=== PATIENT | female | born 1940 | race Caucasian/White ===

== ENCOUNTER → 2017-02-11 | Outpatient (CLI) | payer MEDICARE, OTHER ==
--- NOTE | 2017-02-11 09:37 | RADIOLOGY REPORT (SQ) ---
EXAM DESCRIPTION: CT CHEST WITH; CT ABD/PELVIS WITH IV ORAL COMPLETED DATE/TIME: 02/11/2017 8:19 am REASON FOR STUDY: COLON AND BREAST CANCER C18.2 MALIGNANT NEOPLASM OF ASCENDING COLON C50.411 TINA Hansen NEOPLM OF UPPER-OUTER QUADRANT OF RIGHT FEMALE COMPARISON: Thyroid ultrasound 04/11/2009 CT chest abdomen pelvis 02/03/2016 CONTRAST TYPE AND DOSE: contrast/concentration: Isovue 370.00 mg/ml; Total Contrast Delivered: 78.0 ml; Total Saline Delivered: 67.0 ml RENAL FUNCTION: Creatinine 1.1 TECHNIQUE: CT scan of the chest performed using helical scanning technique with dynamic intravenous contrast injection. Images reviewed with lung, soft tissue and bone windows. Reconstructed coronal a nd sagittal MPR images reviewed. All images stored on PACS. CT scan of the abdomen and pelvis performed with intravenous and with oral contrastusing helical scan radha technique with dynamic intravenous contrast injection. Images reviewed with lung, soft tissue a nd bone windows. Reconstructed coronal and sagittal MPR images reviewed. Delayed images for evaluat ion of the urinary system also acquired and evaluated. All images stored on PACS. All CT scanners at this facility use dose modulation, iterative reconstruction, and/or weight based d osing when appropriate to reduce radiation dose to as low as reasonably achievable (ALARA). [facility]: Dose Right [facility]: CareDose [facility]: Dose Right [facility]: Teradose 4D [facility]: Smart Technologies RADIATION DOSE: Up-to-date CT equipment and radiation dose reduction techniques were employed. CTDIv ol: 4.8 - 6.8 mGy. DLP: 930 mGy-cm. . LIMITATIONS: None. FINDINGS: CHEST: LUNGS AND PLEURA: Stable less than 6 mm subpleural noncalcified nodule posterior right upper lobe christina r the major fissure on axial image 54, of doubtful clinical significance. There is mild left basilar atelectasis in the posterior costophrenic sulcus. Minimal biapical pleuro parenchymal scarring and diffuse changes of obstructive lung disease throughout the upper lobes bilat erally. No pleural effusions. No pneumothorax. No acute infiltrates. No worrisome pulmonary nodules. HILAR AND MEDIASTINAL STRUCTURES: No identified masses or abnormal nodes. Moderate size retrocardiac hiatal hernia HEART AND VASCULAR STRUCTURES: No aneurysm or dissection. No central pulmonary emboli. No pericardi al effusion. Heavily calcified coronary arteries HARDWARE: None. THYROID AND OTHER SOFT TISSUES: Post left lobe thyroidectomy. 3.3 cm right thyroid nodule similar co mpared to previous studies. Old right mastectomy with breast implant. BONES: No significant finding. OTHER: No other significant finding. ABDOMEN AND PELVIS: LIVER: Normal size. No masses. No dilated ducts. SPLEEN: Normal size. No focal lesions. PANCREAS: No masses. No significant calcifications. No adjacent inflammation or peripancreatic fluid collections. Pancreatic duct not dilated. GALLBLADDER: No identified stones by CT criteria. No inflammatory changes to suggest cholecystitis. ADRENAL GLANDS: No significant masses or asymmetry. RIGHT KIDNEY AND URETER: No solid masses. Posterior right upper pole 2.4 x 1.6 cm cyst. No signific ant calcification. No hydronephrosis or hydroureter. LEFT KIDNEY AND URETER: No solid masses. No significant calcification. No hydronephrosis or hydrouret er. AORTA AND VESSELS: Calcified abdominal aorta without aneurysm. No definite stenosis of the celiac, S MA, bilateral renal arteries. At least 50% narrowing proximal right common iliac artery. Left proxi mal common iliac artery unremarkable. RETROPERITONEUM: No retroperitoneal adenopathy, hemorrhage or masses. BOWEL AND PERITONEAL CAVITY: Post right hemicolectomy. No CT evidence of bowel obstruction or free i ntraperitoneal air or fluid. Scattered sigmoid colon diverticuli without CT signs of acute diverticu litis. APPENDIX: Surgically absent ABDOMINAL WALL: No masses. No hernias. BONES: No significant or acute findings. PELVIS: No other significant finding. No adenopathy masses or free fluid. Normal size female pelvic organs. IMPRESSION: Old right mastectomy with breast implant. Remote prior left lobe thyroidectomy, stable right lobe thyroid nodule Right hemicolectomy and appendectomy No CT evidence of metastatic disease over the chest abdomen or pelvis TECHNICAL DOCUMENTATION: JOB ID: [id number] Quality ID # [id number]: Final reports with documentation of one or more dose reduction techniques (e.g., Au tomated exposure control, adjustment of the mA and/or kV according to patient size, use of iterative reconstruction technique) 2010 [employer]- All Rights Reserved
== END ==
LOC: RAD 07:28
PROVIDERS: ATTEND Internal Medicine
DX: C18.2 Malignant neoplasm of ascending colon (principal); C50.411 Malignant neoplasm of upper-outer quadrant of right female breast
CPT/HCPCS: 71260; 74177

== ENCOUNTER 2017-03-10 08:47 | Day surgery (SDC) | payer MEDICARE, OTHER ==
[2017-03-10] MEDS ORDERED: GLYCOPYRROLATE INJ 0.4 MG/2 ML VIAL ONE (09:19)
[2017-03-10] MEDS ORDERED: ONDANSETRON HCL INJ/PF 4 MG/2 ML SDV ONE (09:19)
[2017-03-10] MEDS ORDERED: NALOXONE HCL INJ/PF 0.4 MG/1 ML SDV ONE (09:20)
[2017-03-10] MEDS ORDERED: FLUMAZENIL INJ 0.5 MG/5 ML VIAL ONE (09:21)
[2017-03-10] MEDS ORDERED: EPINEPHRINE INJ 1 MG/10 ML DISP.SYRIN ONE (09:21)
[2017-03-10] MEDS ORDERED: GLUCAGON,HUMAN RECOMB 1 MG INJ ONE (09:21)
[2017-03-10] MEDS: MIDAZOLAM 2 MG/2 ML INJ ONE ×5 (09:48→10:14)
[2017-03-10] MEDS: FENTANYL CITRATE INJ/PF 100 MCG/2 ML AMPUL ONE ×2 (09:50→09:56)
--- NOTE | 2017-03-10 11:05 | PDOC DISCHARGE SUMMARY ---
Discharge Summary (SDC) - Discharge Final Diagnosis: Colon polyp Hx of Colon cancer Date of Surgery: 03/10/17 Discharge Date: 03/10/17 Condition: Good Treatment or Instructions: [place] [address] POST ENDOSCOPY DISCHARGE INSTRUCTIONS 1. Diet: Start clear liquids that a regular diet as tolerated. 2. Resume all preoperative medications. All oral anticoagulants and aspirins can be resumed 24 hours after procedure. 3. If a polypectomy was performed some bleeding per rectum may occur. This should stop within 3 days. If not, please contact the office. 4. If you had a colonoscopy you may experience some bloating and delayed return of normal bowel function for several days, your regular bowel movement pattern should resume within a week. 5. Please contact [facility] at to make an appointment with Dr. Mann for 1 to 3 weeks following procedure. 6. If you have any questions or concerns regarding your care,treatment plan or follow up, please contact our office. 7. Per clinical guidelines we recommend you undergo a repeat colonoscopy in 1 year. Referrals: HERNANDO MASON MD [Primary Care Provider] - Discharge Diet: As Tolerated Discharge Activity: Activity As Tolerated Home Care Assistance: None Needed Report the Following to Your Physician Immediately: Shortness of Breath, Increase in Pain, Fever over 101 Degrees
[2017-03-10 11:43] VITALS: BP 114/70
--- NOTE | 2017-03-10 12:17 | OPERATIVE REPORT E ---
Operative Report NAME: AIDE JESUS : 1940 AGE: 76Y DATE OF SURGERY: 03/10/2017 ROOM: PREOPERATIVE DIAGNOSIS: History of colon cancer, stage II, status post right hemicolectomy. POSTOPERATIVE DIAGNOSES: 1. History of colon cancer, stage II, status post right hemicolectomy, with no evidence of a tumor recurrence at anastomosis; sessile polyp of the distal transverse colon and diverticuloses. 2. Inflammation of the sigmoid colon. PROCEDURE: 1. Total colonoscopy to ileocolonic anastomosis. 2. Hot snare polypectomy of transverse colon polyp. 3. Cold forceps biopsy of sigmoid colon. SURGEON: JEANIE JACKSON M.D. ANESTHESIA: IV sedation. COMPLICATIONS: None. FINDINGS: Estimated blood loss minimal. SUMMARY OF PROCEDURE: The patient was brought from the preop area to the endoscopy suite, where monitoring devices were hooked up. She was placed in the left lateral decubitus position. Surgical plan and surgical timeout were conducted. Appropriate level of anesthesia was induced. A rectal exam was performed. There were external hemorrhoids, small and collapsed. There was no palpable pathology. A flexible adult colonoscope was advanced through the anorectal canal all the way to the ileocolonic anastomosis. This was a [id number] functional end-to-end anastomosis. The opening of the terminal ileum into the anastomosis, as well as the blind end of the mid transverse colon were photographed and examined carefully and there was no evidence of tumor recurrence. This was an excellent study on a well-prepped bowel. The scope was withdrawn through the length of the colon, checking mucosa carefully. In the distal transverse colon, there was an approximately 8 mm sessile somewhat irregular polyp photographed and removed with the hot snare device on medium strength and retained in the container. There was a small remnant of the polyp left and this was retrieved using a cold forceps device. There was a minimal amount of bleeding here and so this was managed by a single application of heat from the tip of the snare, leaving it essentially abated. We withdrew the scope through the rest of the colon, which was unremarkable except for rather dense diverticular disease of the sigmoid colon and some mild excoriation of the mucosa. A random biopsy was taken. The scope was withdrawn from the patient's anus. She tolerated the procedure well. Per surveillance guidelines, the patient would be an appropriate candidate for an accelerated timeframe for repeat colonoscopy in 1 year. DICTATING PHYSICIAN: JEANIE JACKSON M.D. [id number] PHY#: [id number] ID: [id number] JOB#: [id number] ACCT: [id number] cc:JEANIE JACKSON M.D. >
== END 2017-03-10 11:53 | disposition home or self-care (01) ==
LOC: OROUT 08:47
PROVIDERS: ATTEND Surgery
PROC: 0DBL8ZX Excision of Transverse Colon, Via Natural or Artificial Opening Endoscopic, Diagnostic (ICD-10-PCS; principal; 2017-03-10 09:15)
PROC: 0DBN8ZX Excision of Sigmoid Colon, Via Natural or Artificial Opening Endoscopic, Diagnostic (ICD-10-PCS; 2017-03-10 09:15)
DX: D12.3 Benign neoplasm of transverse colon (principal); K64.4 Residual hemorrhoidal skin tags; K52.9 Noninfective gastroenteritis and colitis, unspecified; Z85.038 Personal history of other malignant neoplasm of large intestine; E78.5 Hyperlipidemia, unspecified; I10 Essential (primary) hypertension; G31.9 Degenerative disease of nervous system, unspecified; E11.9 Type 2 diabetes mellitus without complications; F32.9 Major depressive disorder, single episode, unspecified; E89.0 Postprocedural hypothyroidism; M54.16 Radiculopathy, lumbar region; Z85.3 Personal history of malignant neoplasm of breast; Z87.891 Personal history of nicotine dependence; Z79.82 Long term (current) use of aspirin; Z79.899 Other long term (current) drug therapy
CPT/HCPCS: 45380; 45385; 88305 ×2; J2250; J3010; J0171; J1610; J2310; J2405; J3490

== ENCOUNTER → 2017-08-18 | Outpatient (CLI) | payer MEDICARE, OTHER ==
--- NOTE | 2017-08-18 12:05 | WOMENS IMAGING REPORT ---
EXAM DESCRIPTION: BONE DENSITY HIP/SPINE COMPLETED DATE/TIME: 08/18/2017 11:36 am REASON FOR STUDY: AGE-RELATED OSTEOPROSIS; M81.0 C50.411 MALIG NEOPLM OF UPPER-OUTER QUADRANT OF RI GHT FEMALE Z12.31 ENCNTR SCREEN MAMMOGRAM FOR MALIGNANT NEOPLASM OF SHEMAR M81.0 AGE-RELATED OSTEOPORO SIS W/O CURRENT PATHOLOGICAL FRAC COMPARISON: 2013 TECHNIQUE: Dual-Energy X-ray Absorptiometry (DEXA) of the AP Spine and Hip. LIMITATIONS: None. FINDINGS: LUMBAR SPINE: The bone mineral density (BMD) measured from L1-L4 in the AP projection correlates with a T-score of -0.7, which is normal as defined by the World Health Organization. Please note that this includes ve rtebral body endplate sclerosis and posterior element facet sclerosis. This represents a 12% increas e in bone density since 2013 HIP: The bone mineral density (BMD) measured in the left femoral neck at the hip correlates with a T-score of -2.8, which is osteoporotic as defined by the World Health Organization. This is stable compared to 2013 IMPRESSION: 1. LUMBAR SPINE: Normal 2. HIP: Osteoporotic COMMENT: The World Health Organization defines low BMD as follows: T-score: Normal: Greater than -1.0 Osteopenia: Between -1.0 and -2.5 Osteoporosis: Less than -2.5 without fractures Established osteoporosis: Less than -2.5 with fractures In general, you may wish to consider: Diagnosis Treatment Follow-up DEXA Normal BMD Prevention 2-3 years Osteopenia Prevention/Therapy 1-2 years Osteoporosis Therapy Yearly TECHNICAL DOCUMENTATION: JOB ID: [id number]- All Rights Reserved
--- NOTE | 2017-08-19 18:15 | WOMENS IMAGING REPORT ---
EXAM DESCRIPTION: 3D SCREENING MAMMO LEFT COMPLETED DATE/TIME: 08/18/2017 11:36 am REASON FOR STUDY: ENCOUNTER FOR SCREENING; Z12.31 C50.411 MALIG NEOPLM OF UPPER-OUTER QUADRANT OF R IGHT FEMALE Z12.31 ENCNTR SCREEN MAMMOGRAM FOR MALIGNANT NEOPLASM OF SHEMAR M81.0 AGE-RELATED OSTEOPOR OSIS W/O CURRENT PATHOLOGICAL FRAC COMPARISON: None. TECHNIQUE: Standard craniocaudal and mediolateral oblique views of the breast recorded using digital acquisition and breast tomosynthesis. LIMITATIONS: None. FINDINGS: BREAST: left No masses, calcifications or architectural distortion. No areas of suspicion. Read with the assistance of CAD. .[facility] - R2 Cenova Version 1.3 .[facility] - R2 Cenova Version 1.3 .[facility] - R2 Cenova Version 2.4 .[facility] - R2 Cenova Version 2.4 .[facility] - R2 Tea Blender Version 9.2 IMPRESSION: NORMAL MAMMOGRAM. BIRADS 1. BREAST DENSITY: b. There are scattered areas of fibroglandular density. BIRAD: 1 Negative RECOMMENDATION: RECOMMENDATION: ROUTINE SCREENING. Please continue bilateral screening tomosynthesis in August 2018 COMMENT: The patient has been notified of the results by letter per SA requirements. Additional no tification policies are in place for contacting patient with suspicious or incomplete findings. Quality ID #225: The [employer] recommends an annual screening mammogram for women aged 40 years or over. This facility utilizes a reminder system to ensure that all patients receive reminder letters, and/or direct phone calls for appointments. This includes reminders for routine scr eening mammograms, diagnostic mammograms, or other Breast Imaging Interventions when appropriate. Th is patient will be placed in the appropriate reminder system. The [employer] (ACR) has developed recommendations for screening MRI of the breast s in certain patient populations, to be used in conjunction with mammography. Breast MRI surveillance may be appropriate for women with more than 20% lifetime risk of developing breast cancer as determi agustín by genetic testing, significant family history of the disease, or history of mantle radiation for Hodgkins Disease. ACR Practice Guidelines 2008. DBT Technology DBT is a type of tomographic mammography. With conventional mammography, overlapping breast tissue ma y make lesions difficult to detect, even with good compression. DBT uses an x-ray tube that rotates a round the breast, taking images at different angles. These images are then combined to create thin sl ices of the breast that the radiologist can view as a 3D reconstruction. The Hologic unit can perform full-field digital mammograms (2D imaging); or DBT (3D imaging); or both, in a combination mode that quickly performs both the mammogram and the tomosynthesis scan while the breast is still compressed. PQRS 6045F: Fluoroscopic imaging is not utilized for breast tomosynthesis. TECHNICAL DOCUMENTATION: FINDING NUMBER: (1) ASSESSMENT: (1) JOB ID: [id number] [facility]- All Rights Reserved
== END ==
LOC: WI 08:44
PROVIDERS: ATTEND Internal Medicine
DX: Z12.31 Encounter for screening mammogram for malignant neoplasm of breast (principal); C50.411 Malignant neoplasm of upper-outer quadrant of right female breast; M81.0 Age-related osteoporosis without current pathological fracture
CPT/HCPCS: 77080

== ENCOUNTER 2017-09-08 12:54 | Outpatient (CLI) | payer MEDICARE ==
[~2017-09-08 12:54] MED LIST: DENOSUMAB 60 MG/ML SYR 1 ML SUBCUT PRN
[2017-09-08 13:29] VITALS: BP 118/57
== END 2017-09-08 13:58 | disposition home or self-care (01) ==
LOC: II 12:54 → 5TH 12:56 → II 13:58
PROVIDERS: ATTEND Internal Medicine
PROC: 3E0130M Introduction of Antineoplastic, Monoclonal Antibody, into Subcutaneous Tissue, Percutaneous Approach (ICD-10-PCS; principal; 2017-09-08)
DX: M95.8 Other specified acquired deformities of musculoskeletal system (principal); Z79.811 Long term (current) use of aromatase inhibitors
CPT/HCPCS: 96401; J0897

== ENCOUNTER 2017-11-19 22:22 | Emergency (ER) | payer MEDICARE ==
[2017-11-19] MEDS ORDERED: OXYMETAZOLINE HCL 0.05% NASAL SPRAY 15 ML BOTTLE ONE (23:26)
[2017-11-19] MEDS ORDERED: OXYMETAZOLINE HCL 0.05% NASAL SPRAY 15 ML BOTTLE NASL ONE (23:46)
[2017-11-19] MEDS ORDERED: MORPHINE SULFATE IR 15 MG TABLET PO ONE (23:50)
[2017-11-19] MEDS ORDERED: ONDANSETRON 4 MG TAB.RAPDIS PO ONE (23:51)
--- NOTE | 2017-11-19 23:57 | ER Document Report ---
ED ENT - General Chief Complaint: Nose Bleed Stated Complaint: NOSE BLEED Time Seen by Provider: 11/19/17 23:18 Mode of Arrival: Ambulatory Information source: Patient Notes: 77-year-old female patient presents with complaint of epistaxis. Patient reports that bleeding started from right nare approximately 90 minutes prior to arrival. Patient reports that she has had a history of nosebleeds however over the last 30 days they have been getting worse. She reports that she really has an appointment scheduled with also ENT, Dr. Hamilton on 12/07/2017. Patient takes aspirin 81 mg daily but does not take any other blood thinners. Patient reports that she had a history of nasal surgery several years ago in which her surgeon told her that she may suffer from nosebleeds. Patient denies any trauma to the area, denies any other symptoms. Patient reports past medical history of hypertension, hyperlipidemia, hyperthyroidism, type 2 diabetes, tremors, depression, breast cancer, colon cancer. TRAVEL OUTSIDE OF THE [place] IN LAST 30 DAYS: No - Related Data Allergies/Adverse Reactions: latex [Latex] Allergy (Intermediate, Verified 11/19/17 23:39) itch, redness iron [Iron] Adverse Reaction (Intermediate, Verified 11/19/17 23:39) abd cramping/pain Past Medical History - General Information source: Patient - Social History Smoking Status: Never Smoker Frequency of alcohol use: None Drug Abuse: None Lives with: Family Family History: Reviewed & Not Pertinent Patient has suicidal ideation: No Patient has homicidal ideation: No - Past Medical History Cardiac Medical History: Reports: Hx Hypercholesterolemia, Hx Hypertension Denies: Hx Coronary Artery Disease, Hx Heart Attack Pulmonary Medical History: Denies: Hx Asthma, Hx Bronchitis, Hx COPD, Hx Pneumonia Neurological Medical History: Denies: Hx Cerebrovascular Accident, Hx Seizures Endocrine Medical History: Reports: Hx Diabetes Mellitus Type 2, Hx Hyperthyroidism Renal/ Medical History: Denies: Hx Peritoneal Dialysis Musculoskeltal Medical History: Reports Hx Arthritis Psychiatric Medical History: Reports: Hx Depression Past Surgical History: Reports: Hx Abdominal Surgery. Denies: Hx Hysterectomy, Hx Pacemaker - Immunizations Hx Diphtheria, Pertussis, Tetanus Vaccination: Yes Hx Pneumococcal Vaccination: 04/10/17 Review of Systems - Review of Systems Constitutional: No symptoms reported EENT: See HPI Cardiovascular: No symptoms reported Respiratory: No symptoms reported Gastrointestinal: No symptoms reported Genitourinary: No symptoms reported Female Genitourinary: No symptoms reported Musculoskeletal: No symptoms reported Skin: No symptoms reported Hematologic/Lymphatic: No symptoms reported Neurological/Psychological: No symptoms reported Physical Exam - Vital signs Vitals: Temp Pulse Resp BP Pulse Ox 98.8 F 86 20 137/69 H 94 11/19/17 22:51 11/19/17 22:51 11/19/17 22:51 11/19/17 22:51 11/19/17 22:51 - Notes Notes: PHYSICAL EXAMINATION: GENERAL: Well-appearing, well-nourished and in no acute distress. HEAD: Atraumatic, normocephalic. EYES: Pupils equal round and reactive to light, extraocular movements intact, conjunctiva are normal. ENT: Nares patent, active bleeding from right nare with multiple clots, blood noted to the posterior oropharynx. Moist mucous membranes. NECK: Normal range of motion, supple without lymphadenopathy. LUNGS: Breath sounds clear to auscultation bilaterally and equal. No wheezes rales or rhonchi. HEART: Regular rate and rhythm without murmurs ABDOMEN: Soft, nontender, nondistended abdomen. No guarding, no rebound. No masses appreciated. Female : deferred Musculoskeletal: Normal range of motion, no pitting or edema. No cyanosis. NEUROLOGICAL: Cranial nerves grossly intact. Normal speech, normal gait. Normal sensory, motor exams PSYCH: Normal mood, normal affect. SKIN: Warm, Dry, normal turgor, no rashes or lesions noted. Course - Re-evaluation Re-evalutation: 77-year-old female patient with complaint of recurrent nosebleeds. Patient states that she has had previous nasal surgery and her surgeon told her this could be expected. Patient reports that she has had at least 4 bad nosebleeds over the last 30 days and already has an appointment set up with also ENT however the appointment is not until the end of the month. Patient with fairly significant bleeding from the right nare including passage of multiple large clots that has been ongoing for approximately 90 minutes. There is a moderate amount of blood in the posterior oropharynx. Initially attempted to pack the nose with Afrin impregnated cotton while obtaining the Rhino Rocket although the cotton was saturated within a few moments of the insertion. Patient was offered pain medication pre-procedure however patient declined this and stated that she just wanted to get this over with. Rhino Rocket was soaked in normal saline, lubricated, then inserted and secured into right nare without difficulty. Patient did request some pain and nausea medication after insertion and patient was given p.o. medications. Patient will be monitored for 30 minutes to ensure that we have achieved appropriate tamponade. Upon reassessment of patient, no additional bleeding is noted. Patient will be discharged with strict instructions to call Dr. Hamilton's office at [facility] first thing Tuesday in hopes of obtaining an appointment Tuesday or Tuesday for removal of the nasal packing. Patient does understand that if she is unable to obtain an appointment she show presented back to the emergency department in that 48 hour window for reassessment in removal of the nasal packing. Patient is stable at time of discharge. - Vital Signs Vital signs: Temp Pulse Resp BP Pulse Ox 98.8 F 82 16 132/82 H 98 11/19/17 22:51 11/20/17 01:28 11/20/17 01:28 11/20/17 01:28 11/20/17 01:28 Procedures - Nosebleed Procedure Right Location: Posterior Supplies used: Rhinorocket Discharge - Discharge Clinical Impression: Posterior epistaxis Condition: Stable Disposition: HOME, SELF-CARE Additional Instructions: Nosebleed Instructions There is a significant chance of re-bleeding following a nosebleed. Proper care makes this less likely. Do not touch the nose for 24 hours. Do not blow the nose forcefully for one week. After 24 hours, gently apply Vaseline ointment to both nostrils with the tip of a finger, three times a day, for one week. It's normal to have a bloody mucous discharge for a few days. If active bleeding recurs, blow all the blood from the nose, then sit quietly and pinch the nose as firmly as possible for 10 minutes. If this does not stop the bleeding, return for further care. If the packing starts to come out of the nostril, either tuck it back in or cut it off. Don't pull it out. Return for recheck and removal of the packing when in 48 hours. Please take the medications I have prescribed to you as directed. Please do not drive while taking in the pain medication. The packing in your nose needs to be removed in 48 hours. Please call [facility] Tuesday and let them know that you are at the emergency room late Tuesday night with a posterior nosebleed that required packing. The packing will need to be removed Tuesday or Tuesday. If for some reason you are unable to get an appointment with [facility] please return to the emergency department within this timeframe to have the packing removed. Prescriptions: Amoxicillin 500 mg PO BID #14 capsule Morphine Sulfate [Morphine Ir 15 Mg Tablet] 15 mg PO Q4H PRN #12 tablet PRN Reason: For Pain Ondansetron HCl [Zofran 4 mg Tablet] 1 - 2 tab PO Q4H PRN #10 tablet PRN Reason: Referrals: HERNANDO MASON MD [Primary Care Provider] - Follow up as needed ALBERT HAMILTON DO [ASSOCIATE] - Follow up as needed
[2017-11-20 01:30] VITALS: BP 132/82
== END 2017-11-20 01:30 | disposition home or self-care (01) ==
LOC: ER 22:22
PROC: 2Y41X5Z Packing of Nasal Region using Packing Material (ICD-10-PCS; principal; 2017-11-20)
DX: R04.0 Epistaxis (principal); Z79.82 Long term (current) use of aspirin; Z98.890 Other specified postprocedural states; Z85.3 Personal history of malignant neoplasm of breast; Z85.038 Personal history of other malignant neoplasm of large intestine
CPT/HCPCS: 99283; S0119

== ENCOUNTER → 2018-02-23 | Outpatient (CLI) | payer MEDICARE | LOC: LAB 14:10 | PROVIDERS: ATTEND Otolaryngology | DX: J30.9 Allergic rhinitis, unspecified (principal) | CPT/HCPCS: 36415; 82785; 86003 ==

== ENCOUNTER → 2018-04-12 | Outpatient (CLI) | payer MEDICARE ==
--- NOTE | 2018-04-12 11:26 | RADIOLOGY REPORT (SQ) ---
EXAM DESCRIPTION: CT CHEST WITH COMPLETED DATE/TIME: 04/12/2018 10:43 am REASON FOR STUDY: COLON CA (C18.2) C18.2 MALIGNANT NEOPLASM OF ASCENDING COLON COMPARISON: 02/11/2017 TECHNIQUE: CT scan of the chest performed using helical scanning technique with dynamic intravenous contrast injection. Images reviewed with lung, soft tissue and bone windows. Reconstructed coronal and sagittal MPR and MIP images reviewed. All images stored on PACS. All CT scanners at this facility use dose modulation, iterative reconstruction, and/or weight based d osing when appropriate to reduce radiation dose to as low as reasonably achievable (ALARA). [facility]: Dose Right [facility]: CareDose [facility]: Dose Right [facility]: Teradose 4D [facility]: Smart [employer] CONTRAST TYPE AND DOSE: See separate report of the same date. RENAL FUNCTION: See separate report. RADIATION DOSE: . LIMITATIONS: None. FINDINGS: LUNGS AND PLEURA: Subcentimeter right lower lobe nodule stable since 2016. No developing nodules or infiltrates. No effusions. HILAR AND MEDIASTINAL STRUCTURES: No identified masses or abnormal nodes. HEART AND VASCULAR STRUCTURES: No aneurysm or dissection. No central pulmonary emboli. No pericardi al effusion. HARDWARE: None in the chest. UPPER ABDOMEN: See separate report of the CT of the abdomen. THYROID AND OTHER SOFT TISSUES: Prior left thyroidectomy. Stable right thyroid nodule. Right mastec shira and reconstruction. BONES: No acute findings. OTHER: No other significant finding. IMPRESSION: No evidence of metastatic disease. TECHNICAL DOCUMENTATION: JOB ID: [id number] Quality ID # [id number]: Final reports with documentation of one or more dose reduction techniques (e.g., Au tomated exposure control, adjustment of the mA and/or kV according to patient size, use of iterative reconstruction technique) 2010 [employer]- All Rights Reserved Reading location - IP/workstation name: [email or web address]
--- NOTE | 2018-04-12 11:29 | RADIOLOGY REPORT (SQ) ---
EXAM DESCRIPTION: CT ABD/PELVIS WITH IV ORAL COMPLETED DATE/TIME: 04/12/2018 10:43 am REASON FOR STUDY: COLON CA (C18.2) C18.2 MALIGNANT NEOPLASM OF ASCENDING COLON COMPARISON: 02/11/2017 TECHNIQUE: CT scan of the abdomen and pelvis performed using helical scanning technique with dynamic intravenous contrast injection. No oral contrast. Images reviewed with lung, soft tissue, and bone windows. Reconstructed coronal and sagittal MPR images reviewed. Delayed images for evaluation of the urinary system also acquired. All images stored on PACS. All CT scanners at this facility use dose modulation, iterative reconstruction, and/or weight based d osing when appropriate to reduce radiation dose to as low as reasonably achievable (ALARA). [facility]: Dose Right [facility]: CareDose [facility]: Dose Right [facility]: Teradose 4D [facility]: [employer] CONTRAST TYPE AND DOSE: contrast/concentration: Isovue 350.00 mg/ml; Total Contrast Delivered: 78.0 ml; Total Saline Delivered: 67.0 ml RENAL FUNCTION: GFR > 60. RADIATION DOSE: CT Rad equipment meets quality standard of care and radiation dose reduction techniq ues were employed. CTDIvol: 4.5 - 6.0 mGy. DLP: 826 mGy-cm.. LIMITATIONS: None. FINDINGS: LOWER CHEST: See separate report of the CT of the chest. LIVER: Normal size. No masses. No dilated ducts. SPLEEN: Normal size. No focal lesions. PANCREAS: No masses. No significant calcifications. No adjacent inflammation or peripancreatic fluid collections. Pancreatic duct not dilated. GALLBLADDER: No identified stones by CT criteria. No inflammatory changes to suggest cholecystitis. ADRENAL GLANDS: No significant masses or asymmetry. RIGHT KIDNEY AND URETER: Stable cyst. No solid masses. No significant calcifications. No hydrone phrosis or hydroureter. LEFT KIDNEY AND URETER: No solid masses. No significant calcifications. No hydronephrosis or hydr oureter. AORTA AND VESSELS: No aneurysm. RETROPERITONEUM: No retroperitoneal adenopathy, hemorrhage or masses. BOWEL AND PERITONEAL CAVITY: Prior right hemicolectomy. Sigmoid diverticulosis. No masses or inflam matory changes. No free fluid or peritoneal masses. APPENDIX: Surgically absent. PELVIS: No mass. No free fluid. Normal bladder. ABDOMINAL WALL: No masses. No hernias. BONES: No acute findings. OTHER: No other significant finding. IMPRESSION: No evidence of metastatic disease. TECHNICAL DOCUMENTATION: JOB ID: [id number] Quality ID # [id number]: Final reports with documentation of one or more dose reduction techniques (e.g., Au tomated exposure control, adjustment of the mA and/or kV according to patient size, use of iterative reconstruction technique) 2010 [employer] All Rights Reserved Reading location - IP/workstation name: [email or web address]
== END ==
LOC: RAD 10:09
PROVIDERS: ATTEND Internal Medicine
DX: C18.2 Malignant neoplasm of ascending colon (principal)
CPT/HCPCS: 71260; 74177

== ENCOUNTER 2018-05-04 07:42 | Day surgery (SDC) | payer MEDICARE ==
[~2018-05-04 07:42] MED LIST changes: -DENOSUMAB 60 MG/ML SYR 1 ML SUBCUT PRN; +EPINEPHRINE INJ 1 MG/10 ML DISP.SYRIN ONE; +FLUMAZENIL INJ 0.5 MG/5 ML VIAL ONE; +GLUCAGON,HUMAN RECOMB 1 MG INJ ONE; +NALOXONE HCL INJ/PF 0.4 MG/1 ML SDV ONE; +ONDANSETRON HCL INJ/PF 4 MG/2 ML SDV ONE
[2018-05-04] MEDS: MIDAZOLAM 2 MG/2 ML INJ ONE ×3 (08:18→08:30)
[2018-05-04] MEDS: FENTANYL CITRATE INJ/PF 100 MCG/2 ML AMPUL ONE ×4 (08:20→08:35)
--- NOTE | 2018-05-04 08:54 | Discharge Summary ---
Discharge Summary (SDC) - Discharge Final Diagnosis: Normal colonoscopy; sigmoid diverticulosis; history of right hemicolectomy for colon cancer Date of Surgery: 05/04/18 Discharge Date: 05/04/18 Condition: Good Treatment or Instructions: [address] [address] POST ENDOSCOPY DISCHARGE INSTRUCTIONS 1. Diet: Start clear liquids that a regular diet as tolerated. 2. Resume all preoperative medications. All oral anticoagulants and aspirins can be resumed 24 hours after procedure. 3. If a polypectomy was performed some bleeding per rectum may occur. This should stop within 3 days. If not, please contact the office. 4. If you had a colonoscopy you may experience some bloating and delayed return of normal bowel function for several days, your regular bowel movement pattern should resume within a week. 5. Please contact [facility] at to make an appointment with Dr. Mann for 1 to 3 weeks following procedure. 6. If you have any questions or concerns regarding your care,treatment plan or follow up, please contact our office. 7. Per clinical guidelines we recommend you undergo a repeat colonoscopy in 2 years. Referrals: HERNANDO MASON MD [Primary Care Provider] - Discharge Diet: As Tolerated Discharge Activity: Activity As Tolerated Home Care Assistance: None Needed Report the Following to Your Physician Immediately: Shortness of Breath, Increase in Pain, Fever over 101 Degrees
--- NOTE | 2018-05-04 08:58 | Operative Report ---
Operative Report DATE OF SURGERY: 05/04/18 PREOPERATIVE DIAGNOSIS: 1. Status post right hemicolectomy for colorectal carcinoma. 2. Sigmoid diverticulosis. 3. History of tubulovillous adenoma with high-grade dysplasia removed in 2017 POSTOPERATIVE DIAGNOSIS: 1. Status post right hemicolectomy with normal ileocolonic anastomosis. 2. Sigmoid diverticulosis. 3. No evidence of recurrent polyps or colorectal cancer OPERATION: 1. Total colonoscopy to ileocecal anastomosis with photodocumentation. SURGEON: JEANIE JACKSON ANESTHESIA: Moderate Sedation TISSUE REMOVED OR ALTERED: None COMPLICATIONS: None ESTIMATED BLOOD LOSS: None INTRAOPERATIVE FINDINGS: See below PROCEDURE: Obtaining informed consent the patient was taken from the preoperative holding area to the main endoscopy suite where monitoring devices were attached to the patient. Plan and surgical timeout were conducted The patient was placed in the left lateral decubitus position with knees to chest. A perianal examination was performed. There was no visible or palpable anorectal pathology. Sphincter tone was felt to be normal. The flexible adult colonoscope was advanced through the anal rectal canal, all the way to ileo-transverse colon anastomosis. Multiple photos were taken. The area to the terminal ileum was cannulated for few centimeters. There is no evidence of pathology. [place] was then withdrawn from the anastomosis. This was an excellent study on the well-prepped bowel. The colonoscope was withdrawn slowly and methodically checked and the mucosa carefully. There scattered diverticulosis of the sigmoid colon [place]: There was no evidence of tumor, stricture, bleeding or polyp. The scope was slowly withdrawn through the anal rectal canal. Complete visualization of the rectum was achieved with photodocumentation. The scope was withdrawn to the patient's anus. On the patient's right gio- anal tissue was a small skin tag. The patient tolerated the procedure well and was taken to the recovery area in stable condition. Per surveillance guidelines, patient will be offered a follow-up colonoscopy in 2 years, or sooner if symptoms develop.
[2018-05-04 09:37] VITALS: BP 121/62
== END 2018-05-04 09:45 | disposition home or self-care (01) ==
LOC: END 07:42
PROVIDERS: ATTEND Surgery
DX: Z12.11 Encounter for screening for malignant neoplasm of colon (principal); K57.30 Diverticulosis of large intestine without perforation or abscess without bleeding; Z85.038 Personal history of other malignant neoplasm of large intestine; Z90.49 Acquired absence of other specified parts of digestive tract; I10 Essential (primary) hypertension; E11.9 Type 2 diabetes mellitus without complications; E78.5 Hyperlipidemia, unspecified; E89.0 Postprocedural hypothyroidism; G31.9 Degenerative disease of nervous system, unspecified; M54.16 Radiculopathy, lumbar region; F32.9 Major depressive disorder, single episode, unspecified; Z01.818 Encounter for other preprocedural examination; Z79.84 Long term (current) use of oral hypoglycemic drugs; Z79.899 Other long term (current) drug therapy; Z86.010 Personal history of colon polyps; Z87.891 Personal history of nicotine dependence
CPT/HCPCS: 82962; G0121; J2250; J3010; 45378; J0171; J1610; J2310; J2405; J3490

== ENCOUNTER → 2018-09-11 | Outpatient (CLI) | payer MEDICARE ==
--- NOTE | 2018-09-11 10:15 | WOMENS IMAGING REPORT ---
EXAM DESCRIPTION: 3D DX MAMMO LEFT UNILAT COMPLETED DATE/TIME: 09/11/2018 8:19 am REASON FOR STUDY: ROUTINE 3D BILATERAL SCREENING Z12.31 Z12.31 ENCNTR SCREEN MAMMOGRAM FOR MALIGNAN T NEOPLASM OF SHEMAR COMPARISON: [id number] TECHNIQUE: Standard craniocaudal and mediolateral oblique views of the breast recorded using digital acquisition and breast tomosynthesis. LIMITATIONS: None. FINDINGS: BREAST LATERALITY: left No masses, calcifications or architectural distortion. No areas of suspicion. Read with the assistance of CAD. .[facility] - R2 [employer] Version 1.3 .[facility] Imaging - R2 Cenova Version 2.1 .[facility] Imaging - R2 Cenova Version 2.4 .[facility] [place] - R2 Cenova Version 2.4 .[facility] - R2 [employer] Professor Version 9.2 IMPRESSION: NORMAL MAMMOGRAM. BIRADS 1. BREAST DENSITY: b. There are scattered areas of fibroglandular density. BIRAD: 1 Negative RECOMMENDATION: RECOMMENDATION: ROUTINE SCREENING. COMMENT: The patient has been notified of the results by letter per SA requirements. Additional no tification policies are in place for contacting patient with suspicious or incomplete findings. Quality ID #225: The [employer] recommends an annual screening mammogram for women aged 40 years or over. This facility utilizes a reminder system to ensure that all patients receive reminder letters, and/or direct phone calls for appointments. This includes reminders for routine scr eening mammograms, diagnostic mammograms, or other Breast Imaging Interventions when appropriate. Th is patient will be placed in the appropriate reminder system. The [employer] (ACR) has developed recommendations for screening MRI of the breast s in certain patient populations, to be used in conjunction with mammography. Breast MRI surveillance may be appropriate for women with more than 20% lifetime risk of developing breast cancer as determi agustín by genetic testing, significant family history of the disease, or history of mantle radiation for Hodgkins Disease. ACR Practice Guidelines 2008. DBT Technology DBT is a type of tomographic mammography. With conventional mammography, overlapping breast tissue ma y make lesions difficult to detect, even with good compression. DBT uses an x-ray tube that rotates a round the breast, taking images at different angles. These images are then combined to create thin sl ices of the breast that the radiologist can view as a 3D reconstruction. The [employer] unit can perform full-field digital mammograms (2D imaging); or DBT (3D imaging); or both, in a combination mode that quickly performs both the mammogram and the tomosynthesis scan while the breast is still compressed. PQRS 6045F: Fluoroscopic imaging is not utilized for breast tomosynthesis. TECHNICAL DOCUMENTATION: FINDING NUMBER: (1) ASSESSMENT: (1) JOB ID: [id number] [employer]- All Rights Reserved Reading location - IP/workstation name: [email or web address]
== END ==
LOC: WI 08:06
PROVIDERS: ATTEND Internal Medicine
DX: Z12.31 Encounter for screening mammogram for malignant neoplasm of breast (principal)

== ENCOUNTER → 2018-09-21 | Outpatient (CLI) | payer MEDICARE, OTHER ==
--- NOTE | 2018-09-21 13:10 | RADIOLOGY REPORT (SQ) ---
EXAM DESCRIPTION: MRI LUMBAR SPINE COMBO COMPLETED DATE/TIME: 09/21/2018 9:46 am REASON FOR STUDY: LOW BACK PAIN (M54.5) M54.5 LOW BACK PAIN COMPARISON: None. TECHNIQUE: Sagittal and Axial imaging includes T1, T1 post gadolinium, T2, STIR and gradient echo se quences. Coronal T2/HASTE imaging. CONTRAST TYPE AND DOSE: 10 mL Dotarem. RENAL FUNCTION: Not indicated. ACR Type II contrast agent associated with few, if any, unconfounded cases of NSF LIMITATIONS: Motion artifact, particularly on the axial images. FINDINGS: VISUALIZED UPPER ABDOMEN: Limited evaluation. No acute or suspicious findings suggested. SEGMENTATION: No transitional anatomy. The lowest well-developed disc space is labeled L5-S1. ALIGNMENT: Anatomic. VERTEBRAE: Intact. No fractures. BONE MARROW: Normal. No marrow replacement or reactive changes. DISC SIGNAL: Normal. No significant abnormal signal or loss of height. POSTERIOR ELEMENTS: Generally intact. No pars defect evident. HARDWARE: None in the spine. CORD AND CONUS: Normal in size and signal intensity. Conus at the appropriate level. SOFT TISSUES: No aortic aneurysm seen. No bulky retroperitoneal adenopathy or mass. No paraspinal mas s or fluid. L1-L2: No significant spinal stenosis or exit foraminal stenosis. L2-L3: Mild facet arthropathy. No significant disc bulge. No significant spinal stenosis or exit fo raminal stenosis. L3-L4: Mild facet arthropathy. No significant disc bulge. No significant spinal stenosis or exit fo raminal stenosis. L4-L5: Moderate facet arthropathy. Fluid in the facet joints. No significant disc bulge. No signif icant spinal stenosis or exit foraminal stenosis. L5-S1: Moderate facet arthropathy. No significant disc bulge. No significant spinal stenosis or exi t foraminal stenosis. LOWER THORACIC: Incompletely imaged. No stenosis seen. SACRUM: Visualized upper sacrum intact. ENHANCEMENT: No abnormal enhancement. OTHER: No other significant findings. IMPRESSION: DEGENERATIVE CHANGES DUE TO FACET ARTHROPATHY. NO SIGNIFICANT DISC DISEASE. NO STENOSI S OR IMPINGEMENT. NO ENHANCING LESIONS. TECHNICAL DOCUMENTATION: JOB ID: [id number] [employer]- All Rights Reserved Reading location - IP/workstation name: [email or web address]
== END ==
LOC: RAD 08:33
PROVIDERS: ATTEND Internal Medicine
DX: M54.5 Low back pain (principal)
CPT/HCPCS: 82565; 72158; A9576

== ENCOUNTER 2020-01-15 04:59 | Emergency (ER) | payer MEDICARE ==
--- NOTE | 2020-01-15 06:14 | RADIOLOGY REPORT (SQ) ---
EXAM: X-ray wrist two or more views, left CLINICAL DATA: 79-year-old female with bone pain TECHNICAL DATA: Four x-ray views of the left rib were performed on 01/15/2020 at 5:35 AM. COMPARISONS: 01/31/2016 FINDINGS: There is no evidence of fracture or dislocation. There are degenerative changes involving the joint space between the scaphoid and multi angular bones. There is hypertrophic spurring of the scaphoid and trapezium. There may be a bone cyst within the capitate. Bone mineralization is normal. No focal soft tissue abnormalities are identified. IMPRESSION: No evidence of acute osseous injury involving the left wrist. There are mild degenerative changes as described above.
[2020-01-15] MEDS ORDERED: TRAMADOL HCL 50 MG TABLET PO ONE (08:43)
--- NOTE | 2020-01-15 08:44 | ER Document Report ---
ED Hand/Wrist Injury - General Chief Complaint: Wrist Pain Stated Complaint: LEFT WRIST PAIN Time Seen by Provider: 01/15/20 08:12 Primary Care Provider: HERNANDO MASON MD [Primary Care Provider] - Follow up as needed Notes: 79-year-old female with past medical history of hypertension, diabetes, depression presenting with left wrist pain starting for 1 month. States that it worse worse this morning. Woke her up out of sleep. She denies any numbness or tingling, denies any trauma to the wrist. Had an appointment with her primary care provider on Tuesday but she missed her appointment. She notes that there is swelling on the right wrist and she has sharp shooting pain down her hand and upper arm as well. Difficulty flexing her wrist and worsening pain extending her wrist. Dates she was prescribed tramadol for the pain which does provide relief. Has not taken a dose of her pain meds this morning. She denies any history of gout. Denies any fevers or chills or additional symptoms at this time. TRAVEL OUTSIDE OF THE [place] IN LAST 30 DAYS: No - Related Data Allergies/Adverse Reactions: latex [Latex] Allergy (Intermediate, Verified 05/01/18 14:10) itch, redness iron [Iron] Adverse Reaction (Intermediate, Verified 05/01/18 14:10) abd cramping/pain Home Medications: lisinopril, metformin, cardizam, synthroid, statin, tramadol. sertralinr, Cq10, gabapentin Past Medical History - Social History Smoking Status: Former Smoker Family History: Reviewed & Not Pertinent Patient has homicidal ideation: No - Past Medical History Cardiac Medical History: Reports: Hx Hypercholesterolemia, Hx Hypertension Denies: Hx Coronary Artery Disease, Hx Heart Attack Pulmonary Medical History: Denies: Hx Asthma, Hx Bronchitis, Hx COPD, Hx Pneumonia Neurological Medical History: Denies: Hx Cerebrovascular Accident, Hx Seizures Endocrine Medical History: Reports: Hx Diabetes Mellitus Type 2, Hx Hyperthyroidism Renal/ Medical History: Denies: Hx Peritoneal Dialysis Musculoskeletal Medical History: Reports Hx Arthritis Psychiatric Medical History: Reports: Hx Depression Past Surgical History: Reports: Hx Abdominal Surgery. Denies: Hx Hysterectomy, Hx Pacemaker - Immunizations Hx Diphtheria, Pertussis, Tetanus Vaccination: Yes Hx Pneumococcal Vaccination: 04/10/17 Review of Systems - Review of Systems Constitutional: No symptoms reported EENT: No symptoms reported Cardiovascular: No symptoms reported Respiratory: No symptoms reported Gastrointestinal: No symptoms reported Musculoskeletal: See HPI Skin: No symptoms reported Hematologic/Lymphatic: No symptoms reported Neurological/Psychological: No symptoms reported Physical Exam - Vital signs Vitals: Temp Pulse Resp BP Pulse Ox 97.8 F 68 20 156/110 H 99 01/15/20 05:19 01/15/20 05:19 01/15/20 05:19 01/15/20 05:19 01/15/20 05:19 Interpretation: Hypertensive. No: Tachycardic, Tachypneic, Febrile - Notes Notes: Adult General: GENERAL: Alert, interacts well. No acute distress HEAD: Normocephalic, atraumatic EYES: Pupils equal, round and reactive to light. Extraocular movements intact. ENT: Airway patent. Nares patent. NECK: Full range of motion. Supple. Trachea midline. No lymphadenopathy. LUNGS: Clear to auscultation bilaterally, no wheezes, rales, or rhonchi. No respiratory distress. Nontender chest wall. HEART: Regular rate and rhythm. No murmurs, rubs or gallops. ABDOMEN: Soft, nontender. GENITOURINARY: Deferred EXTREMITIES: Left wrist is tender to palpation along lateral aspect, pain with flexion and extension. Mild swelling. normal radial pulse bilaterally. Mildly warmth and tender at scapohoid. No cyanosis. BACK: Moves all extremities NEUROLOGICAL: Alert and oriented x3. Normal speech. Strength 5/ 5 in all extremities. PSYCH: Normal affect, normal mood. SKIN: Warm, dry, normal turgor. No rashes or lesions noted. Course - Re-evaluation Re-evalutation: 01/15/20 08:49 Patient is afebrile. CBC, ESR and uric acid ordered. X-ray shows degenerative changes on her left wrist. 01/15/20 10:01 As notified by the nurse that she just now noticed that labs are ordered on this patient. Patient also informed nurse that she does not desire to have the labs drawn and wait for the lab results. I went and I discussed with the patient that I wanted to rule out gout and septic arthritis. Patient continues to not desire to have the labs drawn and wait for the results. She understands the risks of leaving and not having the labs drawn which include but are not limited too worsening symptoms and joint erosion. I did discuss the x-ray that showed degenerative changes of her wrist. I discussed pain medication with the patient she can continue to take her tramadol at home for her pain. She states that she will call her primary care provider and let them know I am wanting her to have additional labs drawn. I recommend that she follow-up with her primary care provider soon as possible. May also return to the emergency department for worsening symptoms or development of new symptoms. Patient acknowledges and verbalizes understanding of instructions and plan. All questions answered. - Vital Signs Vital signs: Temp Pulse Resp BP Pulse Ox 98.2 F 72 18 135/72 H 98 01/15/20 10:18 01/15/20 10:18 01/15/20 10:18 01/15/20 10:18 01/15/20 10:18 - Laboratory Result Diagrams: 01/15/20 08:43 Discharge - Discharge Clinical Impression: Wrist pain, left Condition: Stable Disposition: HOME, SELF-CARE Additional Instructions: I do not have a good answer as to the cause of your wrist pain. I do recommend that you to have follow-up labs to include ESR, uric acid, and CBC. These labs would give better insight as to the cause of your symptoms. Please take your tramadol at home for the pain. You may wear the wrist brace as tolerated. Follow-up with your primary care provider soon as possible. You may return to the emergency department for worsening symptoms or the development of new symptoms. Referrals: HERNANDO MASON MD [Primary Care Provider] - Follow up as needed
[2020-01-15 10:21] VITALS: BP 135/72
== END 2020-01-15 10:21 | disposition home or self-care (01) ==
LOC: ER 04:59
DX: M25.532 Pain in left wrist (principal); I10 Essential (primary) hypertension; E11.9 Type 2 diabetes mellitus without complications; F32.9 Major depressive disorder, single episode, unspecified; R20.0 Anesthesia of skin; Z87.891 Personal history of nicotine dependence; Z79.899 Other long term (current) drug therapy; Z88.8 Allergy status to other drugs, medicaments and biological substances
CPT/HCPCS: 99283; 73100; A9270

== ENCOUNTER 2020-05-01 06:51 | Day surgery (SDC) | payer MEDICARE ==
[2020-04-28 11:20] LABS: HEMATOCRIT 37.9 % (36.0-47.0); HEMOGLOBIN 12.9 g/dL (12.0-15.5); MEAN CORPUSCULAR HEMOGLOBIN 29.9 pg (27.0-33.4); MEAN CORPUSCULAR HGB CONC 34.1 g/dL (32.0-36.0); MEAN CORPUSCULAR VOLUME 88 fl (80-97); PLATELET COUNT 279 10^3/uL (150-450); RED BLOOD COUNT 4.33 10^6/uL (3.72-5.28); WHITE BLOOD COUNT 6.2 10^3/uL (4.0-10.5)
--- NOTE | 2020-04-28 18:53 | EKG REPORT ---
SEVERITY:- ABNORMAL ECG - SINUS BRADYCARDIA LEFT ATRIAL ABNORMALITY BORDERLINE T ABNORMALITIES, ANTERIOR LEADS : Confirmed by: Jerome Dan MD 28-Apr-2020 18:52:05
[~2020-05-01 06:51] MED LIST changes: +ACETAMINOPHEN 325 MG TABLET PO PRN; -EPINEPHRINE INJ 1 MG/10 ML DISP.SYRIN ONE; -FLUMAZENIL INJ 0.5 MG/5 ML VIAL ONE; -GLUCAGON,HUMAN RECOMB 1 MG INJ ONE; +LACTATED RINGERS 1000 ML IV PRN; +LIDOCAINE 0.5% INJ-PF (5 MG/ML) 50 ML SDV SUBCUT PRN; -NALOXONE HCL INJ/PF 0.4 MG/1 ML SDV ONE; -ONDANSETRON HCL INJ/PF 4 MG/2 ML SDV ONE
[2020-05-01] MEDS ORDERED: PROPOFOL INJ 200 MG/20 ML VIAL IV ONE (07:27)
--- NOTE | 2020-05-01 08:51 | Discharge Summary ---
Discharge Summary (SDC) - Discharge Final Diagnosis: 1. left colon polyp; proctitis; diverticulosis 2. History of colon carcinoma status post extended right hemicolectomy 3. History of right breast cancer Date of Surgery: 05/01/20 Discharge Date: 05/01/20 Condition: Good Treatment or Instructions: [address] [address] POST ENDOSCOPY DISCHARGE INSTRUCTIONS 1. Diet: Start clear liquids that a regular diet as tolerated. 2. Resume all preoperative medications. All oral anticoagulants and aspirins can be resumed 24 hours after procedure. 3. If a polypectomy was performed some bleeding per rectum may occur. This should stop within 3 days. If not, please contact the office. 4. If you had a colonoscopy you may experience some bloating and delayed return of normal bowel function for several days, your regular bowel movement pattern should resume within a week. 5. Please contact [facility] at to make an appointment with Dr. Mann for 1 to 3 weeks following procedure. 6. If you have any questions or concerns regarding your care,treatment plan or follow up, please contact our office. 7. Per clinical guidelines we recommend you undergo a repeat colonoscopy in 2-3 years. Referrals: HERNANDO MASON MD [Primary Care Provider] - Discharge Diet: As Tolerated Discharge Activity: Activity As Tolerated Home Care Assistance: None Needed Report the Following to Your Physician Immediately: Shortness of Breath, Increase in Pain, Fever over 101 Degrees
--- NOTE | 2020-05-01 08:56 | Operative Report ---
Operative Report DATE OF SURGERY: 05/01/20 PREOPERATIVE DIAGNOSIS: 1. Personal history of colon cancer status post extend ed right hemicolectomy. 2. History of colon polyps. 3. Diverticulosis sigmoid colon. 4. History of breast cancer POSTOPERATIVE DIAGNOSIS: Same with. 1. Left colon polyp. 2. Mild proctitis of the upper rectum. 3. Intact ileotransverse colonic anastomosis with no evidence of tumor recurrence OPERATION: 1. Total colonoscopy to ileotransverse colon anastomosis. 2. Left colon polypectomy with hot snare device and specimen retrieval SURGEON: JEANIE JACKSON ANESTHESIA: LMAC TISSUE REMOVED OR ALTERED: 1 left colon polyp COMPLICATIONS: None ESTIMATED BLOOD LOSS: None INTRAOPERATIVE FINDINGS: See below PROCEDURE: Obtaining informed consent the patient was taken from the preoperative holding area to the main endoscopy suite where monitoring devices were attached to the patient. Plan and surgical timeout were conducted The patient was placed in the left lateral decubitus position with knees to chest. A perianal examination was performed. There was no visible or palpable anorectal pathology. Sphincter tone was felt to be normal. The flexible adult colonoscope was advanced through the anal rectal canal, all the way to the ileotransverse colon anastomosis. Photos were taken. There was no evidence of tumor recurrence. This was an excellent study on the well-prepped bowel. The colonoscope was withdrawn slowly and methodically checked and the mucosa carefully. There was no evidence of tumor, stricture, bleeding; there was a 3 to 4 mm sessile polyp in the left colon approximately 50 cm from the anal verge which was removed with a hot snare device, medium heat strength, specimen retrieved, and coagulation site monitored and felt to be stable. Photo taken. There are scattered diverticulosis but no evidence of stricture of the sigmoid colon. In the upper rectum at approximately 25cm from the anal verge, covering a length of approximately 5 to 7 cm was in the area of erythematous irritation noted when the scope was advanced. A random biopsy was selected and labeled upper rectum. Findings are consistent with mild colitis. The scope was slowly withdrawn through the anal rectal canal. Complete visualization of the rectum was achieved with photodocumentation. The scope was withdrawn to the patient's anus. The patient tolerated the procedure well and was taken to the recovery area in stable condition. Per surveillance guidelines, patient will be an appropriate candidate for follow-up colonoscopy in [2 to 3 years pending final path report
[2020-05-01 12:52] VITALS: BP 131/48
== END 2020-05-01 09:34 | disposition home or self-care (01) ==
LOC: END 06:51
PROVIDERS: ATTEND Surgery
DX: Z12.11 Encounter for screening for malignant neoplasm of colon (principal); D12.5 Benign neoplasm of sigmoid colon; K57.30 Diverticulosis of large intestine without perforation or abscess without bleeding; K62.89 Other specified diseases of anus and rectum; Z85.038 Personal history of other malignant neoplasm of large intestine; Z86.010 Personal history of colon polyps; Z85.3 Personal history of malignant neoplasm of breast; I10 Essential (primary) hypertension; E11.9 Type 2 diabetes mellitus without complications; E78.5 Hyperlipidemia, unspecified; G31.9 Degenerative disease of nervous system, unspecified; F32.9 Major depressive disorder, single episode, unspecified; J45.909 Unspecified asthma, uncomplicated; Z90.49 Acquired absence of other specified parts of digestive tract; Z87.891 Personal history of nicotine dependence; Z90.11 Acquired absence of right breast and nipple; Z79.84 Long term (current) use of oral hypoglycemic drugs; Z20.828 Contact with and (suspected) exposure to other viral communicable diseases; Z98.0 Intestinal bypass and anastomosis status
CPT/HCPCS: 45380; 45385; 93005; 36415; 82962; 85027; 88305 ×2; 93010; 00811; U0003; J2704; C9803; 811; 87635